=== PATIENT | male | born 1960 | race Caucasian/White ===

== ENCOUNTER → 2018-12-22 | Day surgery (SDC) | payer MEDICARE ==
[~2018-12-22] MED LIST: ATORVASTATIN CA10 MG PO; FENTANYL CITRATE/PF 100MCG/2 ML INJ ONE; GLUCAGON FOR INJ 1 MG VIAL ONE; HYOSCYAMINE SULFATE 0.5 MG/ML INJ ONE; KETAMINE HCL INJ 50 MG/ML 10 ML VIAL ONE; LIDOCAINE HCL 2% LOCAL INJ 5 ML SDV VIAL INJ ONE; MIDAZOLAM HCL 2 MG/2 ML VIAL ONE; PAXIL10 MG PO; PROPOFOL IV EMULSION 10 MG/ML 50 ML VIAL ONE; SEROQUEL25 MG PO; SIMETHICONE 40 MG/0.6 ML BTL ONE
--- OUTSIDE RECORDS SUMMARY | 2018-12-22 05:51 | XMS REPORT ---
Author Author [facility] Address Unknown Phone Unavailable Care Team Providers Care Clinical Geneticist Name Role Phone Unavailable Unavailable Payers Payer Name Policy Type Policy Number Effective Date Expiration Date Problems This patient has no known problems. Allergies, Adverse Reactions, Alerts Allergy Name Allergy Type Status Severity Reaction(s) Onset Date Inactive Date Treating Clinician Comments No Known Allergies DA Active U 2017-01-05 00:00:00 Medications This patient has no known medications.
--- NOTE | 2018-12-22 07:10 | NUR ---
SPIRITUAL CARE - Pre-Surgery Assessment: Pt in bed. Pt's mother at bedside. Pt reported supportive attention from family and friends. Intervention: I provided pastoral presence, hospitality, sympathetic listening, and prayer. I acquainted pt with availability of production checker while hospitalized. Outcome: Pt expressed appreciation for visit. No need for follow up indicated at this time. [facility] Spiritual Care Department O: [phone] Pager: [phone] ([phone] number calling from)
[2018-12-22 09:30] VITALS: BP 118/84
--- NOTE | 2018-12-22 10:31 | Operative Report ---
DATE OF PROCEDURE: 12/22/2018 SURGEON: Vinay Bergman MD PROCEDURE: Colonoscopy with polypectomy. INDICATIONS FOR COLONOSCOPY: Colorectal cancer screening. MEDICATIONS: The patient was done under MAC, please see anesthesiologist's note. PROCEDURE IN DETAIL: With the patient in left lateral decubitus position, flexible fiberoptic Olympus colonoscope was inserted into the rectum with ease and advanced all the way to the cecum. Three polyps were snared and one polyp was removed per cold biopsy forceps from the cecum. A 6 mm sessile polyp was removed per snare electrocautery from the ileocecal valve. Two polyps were snared from the ascending colon. Diverticular disease was noted to involve pretty much the entire colon. Three polyps were removed from the rectum tube per snare electrocautery and one per hot biopsy forceps. The scope was then retroflexed into the distal rectum and moderate-sized internal hemorrhoids were noted, none of which was actively bleeding. The scope was then straightened out, it was subsequently withdrawn. The patient tolerated procedure well. IMPRESSION: 1. Cecal polyps x4, three snared and one removed per the cold biopsy forceps. 2. Diverticulosis. 3. Rectal polyps x3, two snared and one hot biopsied. 4. Internal hemorrhoids, none actively bleeding. A total of 10 polyps were removed. PLAN: Follow up histology. Initiate high-fiber, low-fat diet. Initiate high-fiber supplement. The patient might benefit from a followup colonoscopy in 1 to 2 years. Vinay Bergman MD [facility] [place]ASHIDA /[id number] cc: Calvin Damon MD
== END | disposition home or self-care (01) ==
LOC: OR 05:45
PROVIDERS: ATTEND Internal Medicine Gastroenterology
DX: Z12.11 Encounter for screening for malignant neoplasm of colon (principal); D12.0 Benign neoplasm of cecum; D12.2 Benign neoplasm of ascending colon; K62.1 Rectal polyp; K57.30 Diverticulosis of large intestine without perforation or abscess without bleeding; K64.8 Other hemorrhoids; I10 Essential (primary) hypertension; E78.5 Hyperlipidemia, unspecified; F32.9 Major depressive disorder, single episode, unspecified
CPT/HCPCS: 45380; 45384; 45385; 93005; J1610; J1980; J2001; J2250; J2704; 45378

== ENCOUNTER 2019-03-10 11:16 | Emergency (ER) | payer MEDICARE ==
[~2019-03-10] VITALS: Ht 188 cm; Wt 117.9 kg
[~2019-03-10 11:16] MED LIST changes: -FENTANYL CITRATE/PF 100MCG/2 ML INJ ONE; -GLUCAGON FOR INJ 1 MG VIAL ONE; -HYOSCYAMINE SULFATE 0.5 MG/ML INJ ONE; -KETAMINE HCL INJ 50 MG/ML 10 ML VIAL ONE; -LIDOCAINE HCL 2% LOCAL INJ 5 ML SDV VIAL INJ ONE; -MIDAZOLAM HCL 2 MG/2 ML VIAL ONE; -PROPOFOL IV EMULSION 10 MG/ML 50 ML VIAL ONE; -SIMETHICONE 40 MG/0.6 ML BTL ONE
--- NOTE | 2019-03-10 11:54 | Diagnostic Imaging Report ---
History: Memory loss Comparison studies: None Technique: Axial images were obtained from the skull base to the vertex. Coronal and sagittal reconstructions obtained from the axial data. Dose modulation, iterative reconstruction, and/or weight based adjustment of the mA/kV was utilized to reduce the radiation dose to as low as reasonably achievable. Findings: Scalp/skull: No abnormalities. No fractures, blastic or lytic lesions. Extra-axial spaces: No masses. No fluid collections. Brain sulci: Appropriate for age. Ventricles: Normal in size and configuration. No hydrocephalus. Parenchyma: No abnormal densities. No masses, hemorrhage, acute or chronic cortical vascular insults. Sellar/suprasellar region: No abnormalities Craniocervical junction: Patent foramen magnum. No Chiari one malformation. IMPRESSION: No abnormalities . Signed by: DR Reji Marquez M.D. on 03/10/2019 11:51 AM
[2019-03-10] MEDS ORDERED: ACETAMINOPHEN 325 MG TAB PO ONE (12:30)
[2019-03-10 12:42] LABS: BASOPHILS % 0.5 % (0.0-1.0); EOSINOPHILS # (AUTO) 0.1 (0.0-0.4); EOSINOPHILS % 1.7 % (0.0-6.0); HEMOGLOBIN 12.9 g/dL (14.0-18.0); LYMPHOCYTES # (AUTO) 1.4 (1.0-3.2); LYMPHOCYTES % 23.9 % (18.0-39.1); MEAN CORPUSCULAR HEMOGLOBIN 27.7 pg (28-32); MEAN CORPUSCULAR HGB CONC 33.9 g/dL (31-35); MEAN CORPUSCULAR VOLUME 81.5 fL (81-99); MONOCYTES # (AUTO) 0.3 (0.2-0.8); MONOCYTES % 4.2 % (4.4-11.3); NEUTROPHILS # (AUTO) 4.1 (2.1-6.9); NEUTROPHILS % 69.4 % (38.7-80.0); PLATELET COUNT 240 x10e3/uL (140-360); RED BLOOD COUNT 4.66 x10e6/uL (4.3-5.7); RED CELL DISTRIBUTION WIDTH 14.3 % (11.7-14.4)
[2019-03-10 12:43] LABS: BILIRUBIN,URINE NEGATIVE (NEGATIVE); CLARITY,URINE CLEAR (CLEAR); COLOR,URINE YELLOW (YELLOW); KETONES,URINE NEGATIVE (NEGATIVE); LEUKOCYTE ESTERASE ,URINE NEGATIVE (NEGATIVE); NITRITE,URINE NEGATIVE (NEGATIVE); PROTEIN,URINE DIPSTICK NEGATIVE (NEGATIVE); URINE UROBILINOGEN 0.2 mg/dL (0.2 - 1)
[2019-03-10 12:51] LABS: AMPHETAMINES SCREEN,URINE NEGATIVE (NEGATIVE); BACTERIA,URINE RARE /HPF; BENZODIAZEPINES SCREEN,URINE NEGATIVE (NEGATIVE); EPITHELIAL CELLS,URINE RARE /LPF; PHENCYCLIDINE SCREEN,URINE NEGATIVE (NEGATIVE); RBC,URINE 0-5 /HPF (0-5); WBC,URINE (MAN) 0-5 /HPF (0-5)
[2019-03-10 13:01] LABS: ALANINE AMINOTRANSFERASE 35 IU/L (0-55); ALBUMIN 3.9 g/dL (3.5-5.0); ALBUMIN/GLOBULIN RATIO 1.4 (0.8-2.0); ALKALINE PHOSPHATASE 51 IU/L (40-150); ANION GAP 18.8 mmol/L (8-16); BLOOD UREA NITROGEN 11 mg/dL (7-26); BUN/CREATININE RATIO 10 (6-25); CALCIUM 9.8 mg/dL (8.4-10.2); CARBON DIOXIDE 20 mmol/L (22-29); CHLORIDE 105 mmol/L (98-107); CREATINE KINASE 39 IU/L (30-200); CREATININE, SERUM 1.11 mg/dL (0.72-1.25); EST GLOMERULAR FILTRATION RATE > 60 ML/MIN (60-); GLUCOSE 204 mg/dL (74-118); POTASSIUM 3.8 mmol/L (3.5-5.1); SODIUM 140 mmol/L (136-145)
== END 2019-03-10 14:21 | disposition home or self-care (01) ==
LOC: ER 11:16
DX: G44.89 Other headache syndrome (principal); R53.1 Weakness; F31.9 Bipolar disorder, unspecified
CPT/HCPCS: 36415; 70450; 80053; 80307; 80320; 81001; 82550; 82553; 84484; 85025; 87086; 93005; 99284

== ENCOUNTER 2020-01-25 20:26 | Emergency (ER) | payer MEDICARE ==
[~2020-01-25] VITALS: Ht 182.9 cm; Wt 99.8 kg
--- NOTE | 2020-01-25 20:54 | Emergency Department Note ---
History of Present Illnes History of Present Illness Chief Complaint: Neurological History of Present Illness This is a 59 year old male PRESENTS WITH C/O TROUBLE CONCENTRATING HIS ENTIRE LIFE, STATES DIAGNOSED ADD YEARS AGO. CAME IN TONIGHT TO GET MEDICATION TO HELP HIM CONCENTRATE BETTER. SYMPTOMS HAVE BEEN THERE HIS WHOLE LIFE, STATES THEY ARE NOT GETTING WORSE OR CHANGING IN ANY WAY . Onset (how long ago): year(s) (40) Location: NONE Quality: TROUBLE CONCENTRATING Radiation: Reports non-radiation Severity: mild Onset quality: unable to specify Duration (how long): month(s) (40 YEARS) Timing of current episode: constant, unable to specify Progression: unchanged Chronicity: chronic Context: Denies recent illness, Denies recent surgery Relieving factors: none Exacerbating factors: none Associated symptoms: Reports denies other symptoms Past Medical/Family History Physician Review I have reviewed the patient's past medical and family history. Any updates have been documented here. Past Medical History Past Medical History: Depression Other Medical History: BIPOLAR ADD Other Surgery: RIGHT ARM REPAIR Social History Smoking Cessation: Never Smoker Alcohol Use: None Any Illegal Drug Use: No Physically hurt or threatened: No Family History Family history of heart diseas: No Other Last Tetanus: UNKNOWN Review of Systems Review of Systems Constitutional: Reports no symptoms EENTM: Reports no symptoms Cardiovascular: Reports no symptoms Respiratory: Reports no symptoms Gastrointestinal: Reports no symptoms Genitourinary: Reports no symptoms Musculoskeletal: Reports no symptoms Integumentary: Reports no symptoms Neurological: Reports no symptoms Psychological: Reports no symptoms Endocrine: Reports no symptoms Hematological/Lymphatic: Reports as per HPI Physical Exam Related Data Allergies: Coded Allergies: No Known Allergies (Unverified , 05/03/15) Triage Vital Signs Vital Signs Date Time Temp Pulse Resp B/P (MAP) Pulse Ox O2 Delivery O2 Flow Rate FiO2 01/25/20 20:47 98.7 73 18 117/70 96 Vital signs reviewed: Yes Physical Exam CONSTITUTIONAL Constitutional: Present well-developed, Present well-nourished HENT HENT: Present normocephalic, Present atraumatic, Present oropharynx clear/moist, Present nose normal HENT L/R: Present left ext ear normal, Present right ext ear normal EYES Eyes: Reports PERRL, Reports conjunctivae normal NECK Neck: Present ROM normal PULMONARY Pulmonary: Present effort normal, Present breath sounds normal CARDIOVASCULAR Cardiovascular: Present regular rhythm, Present heart sounds normal, Present capillary refill normal, Present normal rate GASTROINTESTINAL Abdominal: Present soft, Present nontender, Present bowel sounds normal GENITOURINARY Genitourinary: Present exam deferred SKIN Skin: Present warm, Present dry MUSCULOSKELETAL Musculoskeletal: Present ROM normal NEUROLOGICAL Neurological: Present alert, Present oriented x 3, Present no gross motor or sensory deficits PSYCHOLOGICAL Psychological: Present mood/affect normal, Present judgement normal Assessment & Plan Medical Decision Making [facility] PT WITH H/O ADHD AND TROUBLE CONCENTRATING HIS ENTIRE LIFE, CAME IN TO GET MEDICATION TO HELP HIM CONCENTRATE I HAD DISCUSSION WITH PT THAT HE NEEDS TO FOLLOW UP WITH HIS PCP OR PSYCHIATRIST FOR TREATMENT OF HIS ADHD Assessment & Plan Final Impression: (1) ADHD Depart Disposition: HOME, SELF-CARE Last Vital Signs Date Time Temp Pulse Resp B/P (MAP) Pulse Ox O2 Delivery O2 Flow Rate FiO2 01/25/20 20:47 98.7 73 18 117/70 96 Home Meds Reported Medications Atorvastatin Calcium (ATORVASTATIN CALCIUM) 10 Mg Tablet, 10 MG PO HS, #30 TAB 12/06/18 Quetiapine Fumarate (SEROQUEL) 25 Mg Tablet, 25 MG PO DAILY, #60 TAB 12/06/18 Paroxetine Hcl (PAXIL) 10 Mg Tablet, 5 MG PO DAILY 12/06/18 REE HELM MD Jan 25, 2020 20:54
[2020-01-25 21:05] VITALS: BP 117/70
== END 2020-01-25 22:32 | disposition home or self-care (01) ==
LOC: ER 21:05
DX: F90.9 Attention-deficit hyperactivity disorder, unspecified type (principal); F31.9 Bipolar disorder, unspecified
CPT/HCPCS: 99282

== ENCOUNTER → 2024-02-08 | Day surgery (SDC) | payer MEDICARE ==
[~2024-02-08] MED LIST changes: +BENZTROPINE MESY2 MG PO; +CYMBALTA30 MG PO; +FENOFIBRATE145 MG PO; +GLIPIZIDE5 MG PO; +GLUCAGON FOR INJ 1 MG VIAL ONE; +HUMULIN R100 UNIT/2 INJ; +LIDOCAINE HCL 2% LOCAL INJ 5 ML SDV VIAL INJ ONE; +MIDAZOLAM HCL 2 MG/2 ML VIAL ONE; +PROPOFOL IV EMULSION 10 MG/ML 20 ML VIAL ONE; +RYBELSUS7 MG PO; +TRAZODONE HCL100 MG PO
[2024-02-08] MEDS: LACTATED RINGER'S 1,000 ML ONE (13:18)
[2024-02-08 14:46] VITALS: TEMP 98
[2024-02-08 15:10] VITALS: BP 150/70; PULSE 80; RESP 16; O2SAT 96
== END | disposition home or self-care (01) ==
LOC: OR 12:19
PROVIDERS: ATTEND Internal Medicine Gastroenterology
DX: Z09 Encounter for follow-up examination after completed treatment for conditions other than malignant neoplasm (principal); D12.2 Benign neoplasm of ascending colon; D12.3 Benign neoplasm of transverse colon; K57.30 Diverticulosis of large intestine without perforation or abscess without bleeding; K64.8 Other hemorrhoids; E11.9 Type 2 diabetes mellitus without complications; I10 Essential (primary) hypertension; E78.5 Hyperlipidemia, unspecified; F32.A Depression, unspecified; G20.A1 Parkinson's disease without dyskinesia, without mention of fluctuations; Z01.810 Encounter for preprocedural cardiovascular examination; Z79.84 Long term (current) use of oral hypoglycemic drugs; Z79.85 Long-term (current) use of injectable non-insulin antidiabetic drugs; Z79.4 Long term (current) use of insulin; Z79.899 Other long term (current) drug therapy
CPT/HCPCS: 45385; 93005; J1610; J2001; J2250; J2704; J7121; 45378

== ENCOUNTER → 2025-03-06 | Day surgery (SDC) | payer MEDICARE ==
[2025-03-05 12:21] LABS: BASOPHILS % 0.4 % (0.0-1.0); EOSINOPHILS % 1.5 % (0.0-6.0); LYMPHOCYTES % 21.7 % (18.0-39.1); MONOCYTES % 4.7 % (4.4-11.3); NEUTROPHILS % 71.3 % (38.7-80.0); RED CELL DISTRIBUTION WIDTH 13.9 % (11.7-14.4)
[2025-03-05 12:50] LABS: EST GLOMERULAR FILTRATION RATE 57.0 ML/MIN (>=60)
[~2025-03-06] MED LIST changes: +ACETAMINOPHEN 1000 MG/100 ML 100 ML IV ONE; +DEXAMETHASONE SOD PHOS INJ 4 MG/ML SDV ONE; +FENTANYL CITRATE/PF 100MCG/2 ML INJ ONE; -GLUCAGON FOR INJ 1 MG VIAL ONE; +KETOROLAC TROMETHAMINE 30 MG/ML VIAL ONE; +LACTATED RINGER'S 1,000 ML ONE; +ONDANSETRON HCL INJ 2MG/ML 2ML 2 MG/ML VIAL ONE; +PHENAZOPYRIDINE HCL 100 MG TAB ONE; +SEVOFLURANE INHAL SOLN 250 ML PEN BTL ONE
[2025-03-06] MEDS: CEFAZOLIN SODIUM 2 GM ONE (14:31)
[2025-03-06] MEDS: SODIUM CHLORIDE 0.9% 1000ML 1,000 ML ONE (14:32)
[2025-03-06 17:12] VITALS: TEMP 98.9
[2025-03-06 18:15] VITALS: BP 118/78; PULSE 72; RESP 15; O2SAT 97
== END | disposition home or self-care (01) ==
LOC: OR 13:30
PROVIDERS: ATTEND Urology
DX: N43.3 Hydrocele, unspecified (principal); N40.1 Benign prostatic hyperplasia with lower urinary tract symptoms; N13.8 Other obstructive and reflux uropathy; E11.22 Type 2 diabetes mellitus with diabetic chronic kidney disease; N18.9 Chronic kidney disease, unspecified; N32.89 Other specified disorders of bladder; E78.5 Hyperlipidemia, unspecified; E66.01 Morbid (severe) obesity due to excess calories; F32.A Depression, unspecified; Z01.810 Encounter for preprocedural cardiovascular examination; Z01.812 Encounter for preprocedural laboratory examination; Z79.84 Long term (current) use of oral hypoglycemic drugs; Z79.85 Long-term (current) use of injectable non-insulin antidiabetic drugs; Z79.4 Long term (current) use of insulin; Z79.899 Other long term (current) drug therapy
CPT/HCPCS: 36415 ×2; 52000; 55040; 80048; 82948; 85025; 88304; 93005; J0131; J1100; J1885; J2003; J2250; J2405; J2704; J3010; J7030; J7121